=== PATIENT | female | born 1935 | race Caucasian/White ===

== ENCOUNTER 2017-03-11 10:40 | Inpatient (IN) | payer MEDICARE, BC ==
[2017-03-11] MEDS ORDERED: Nitroglycerin 0.4 MG Tab.SL SL PRN (13:06)
[2017-03-11] MEDS: Carbidopa/Levodopa 25-100 MG Tab PO SCH ×2 (13:37→19:08)
[2017-03-11] MEDS: Acetaminophen 650 MG Tab.ER PO PRN (19:08)
--- NOTE | 2017-03-11 19:08 | HP ---
ADMISSION DATE: 03/11/2017 REASON FOR ADMISSION: Swing bed postoperative recovery, right total knee arthroplasty. HISTORY OF PRESENT ILLNESS: Ileana Robbins is a 81-year-old female, [place] resident, was transferred from [facility] to [facility] swing bed for post total right total knee arthroplasty rehab. Doing well. Underwent right total knee arthroplasty at [facility] in [place], 03/08/2017. Upon review, postoperative course was unremarkable. Hemoglobin day prior to admission, 03/10/2017, was 9.2. Pain is doing well, movement in therapy related only. MEDICATIONS: 1. Baby aspirin 81 mg. 2. Carbidopa levodopa 25-100 one p.o. t.i.d. 3. Acetaminophen 650 mg 1 p.o. q.8 hours p.r.n. for pain. 4. Amlodipine 2.5 mg 1 p.o. daily, blood pressure. 5. Atorvastatin 40 mg 1 p.o. at bedtime, hyperlipidemia/heart disease. Vitamin D3 1000 units daily. 6. Vitamin B12 1000 units daily. 7. Lovenox 30 mg subcu b.i.d., DVT prevention. 8. Flonase 2 puffs to each nostril once daily, allergic rhinitis. 9. Lisinopril 20 mg 1 p.o. daily, hypertension. 10.Metoprolol 12.5 mg 1 p.o. daily, CAD. 11.P.r.n. nitroglycerin. 12.Oxycodone 5 mg p.o. q.4 hours p.r.n. for pain. 13.Senna Plus one p.o. b.i.d. constipation. ALLERGIES: Allergic to aspirin, though is on; hydrocodone with nausea; tramadol with nausea. PAST MEDICAL HISTORY: Significant for previous remote sinus surgery and single coronary artery stent in May 2016 for coronary artery disease. No other operative procedures, hospitalizations, unusual childhood diseases, major injuries, or fractures. Ongoing medical problems include CAD with stent, medical therapy; recent diagnosis a year ago of Parkinson's on treatment. 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 Two children; one daughter and one son. Son lives [place] and daughter lives in [place]. at age 55 of complications of valve surgery. Nonsmoker. No alcohol consumption. No illicit drug use. FAMILY HISTORY: Mom at 88 of a stroke, dad succumbed to motor vehicle accident at 67. Eleven siblings total, four sisters and six brothers. Lost one brother to cancer, one to heart disease, one to a brain tumor. Sisters all are well. REVIEW OF SYSTEMS: CONSTITUTIONAL: Feeling generally well. EYES: Sees well with correction. EARS: Hears well without conflict. OROPHARYNX: All dentition intact. CHEST: No cough, wheeze, or congestion. CARDIOVASCULAR: Denies chest pain, palpitations, or syncope. GI: Regular predictable stools, stool softener placed. : Good bladder control. SKIN: No new lesions, eruptions, or moles. ENDOCRINE: No excessive thirst or urination. ALLERGIES: No chronic cough, wheeze, or congestion. Some seasonal hay fevers. Orthopedic recent right total knee arthroplasty. PSYCHIATRIC: Mood stable. PHYSICAL EXAMINATION: VITAL SIGNS: Stable. 76.2 kg, height 1.6 meters, 36.8 degrees centigrade, pulse of 86, blood pressure 121/67, mean blood pressure 85, respirations 17, O2 saturation 95%. GENERAL: Elderly, cooperative, conversant. Gives a good history. Nothing really parkinsonian looking about her. HEENT: Reveal funduscopic benign. Bright TMs. Clear nasal discharge. Mouth and oropharynx are clear. Tongue midline. Good gag reflex. NECK: Benign. Thyroid small. No adenopathy. No carotid bruits. CHEST: Clear in all lung olmstead. No adventitious sounds. HEART: Regular without ectopy or murmur. Normal S1, S2 without S3, S4 murmur. Breasts exam deferred. ABDOMEN: Benign. No surgical scars. No hepatosplenomegaly AND RECTAL: Appropriate for extremities. Dressing in place. Right total knee arthroplasty. Moderate warmth and redness and swelling appropriate for postoperative four days. EXTREMITIES: Well perfused with dorsalis pedis, posterior tibial, venous insufficiency. RECTAL: Appropriately deferred. LABORATORY STUDIES: None indicated. ASSESSMENT: 1. Swing bed admission, right total knee arthroplasty, doing well. 2. Status post surgery, status post CAD with single artery stent placement. 3. Hypertension. 4. Hyperlipidemia. PLAN: Medications will be continued as appropriate. We will proceed with appropriate duration as outlined on her Lovenox therapy. PT/OT consulted, observation of general well being will do well. /[id number] JANIE/GISELA
[2017-03-11] MEDS: Enoxaparin 30 MG/0.3 ML Syringe SUBCUT SCH (21:28)
[2017-03-11] MEDS: atorvaSTATin 40 MG Tab PO SCH (21:28)
[2017-03-12] MEDS: oxyCODONE 5 MG Tab PO PRN ×4 (03:55→20:42)
[2017-03-12] MEDS: Acetaminophen 650 MG Tab.ER PO PRN (06:54)
[2017-03-12] MEDS: Carbidopa/Levodopa 25-100 MG Tab PO SCH ×3 (06:55→18:30)
[2017-03-12] MEDS: Fluticasone Propionate Nasal Spray 16 GM Bottle NASBOTH SCH (08:32)
[2017-03-12] MEDS: Aspirin 81 MG Tab.EC PO SCH (08:33)
[2017-03-12] MEDS: Enoxaparin 30 MG/0.3 ML Syringe SUBCUT SCH ×2 (08:33→20:32)
[2017-03-12] MEDS: amLODIPine 2.5 MG Tab PO SCH (08:35)
[2017-03-12] MEDS: Lisinopril 20 MG Tab PO SCH (08:35)
[2017-03-12] MEDS: Metoprolol Succinate 25 MG Tab.ER PO SCH (08:36)
[2017-03-12] MEDS ORDERED: Cholecalciferol (Vitamin D3) 1,000 Unit Tab PO SCH (09:00)
[2017-03-12] MEDS ORDERED: Cyanocobalamin (Vitamin B12) 1,000 MCG Tab PO SCH (09:00)
--- NOTE | 2017-03-12 12:14 | PN ---
DATE SEEN: 03/12/2017 SUBJECTIVE: Ileana Robbins is a 81-year-old female, seen today for review. Four days postop right total knee arthroplasty. Dr. Stephen Barnard. Doing well. Dressing to be in place for five days by report. Doing well. A little bit of pain treated with analgesics and comfortable. Otherwise doing well. PT happy with success. OBJECTIVE: Wound was dressed, but looking without difficulty. Moderate swelling. Postoperative care, right total knee arthroplasty. PLAN: All looks well. Continue PT therapy and care. Evaluation 1st of the week. /[id number] JANIE/GISELA
[2017-03-12] MEDS: atorvaSTATin 40 MG Tab PO SCH (20:31)
[2017-03-13] MEDS: oxyCODONE 5 MG Tab PO PRN ×3 (05:05→20:12)
[2017-03-13] MEDS: Carbidopa/Levodopa 25-100 MG Tab PO SCH ×3 (06:31→18:10)
[2017-03-13] MEDS: Fluticasone Propionate Nasal Spray 16 GM Bottle NASBOTH SCH (09:27)
[2017-03-13] MEDS: Aspirin 81 MG Tab.EC PO SCH (09:28)
[2017-03-13] MEDS: Enoxaparin 30 MG/0.3 ML Syringe SUBCUT SCH ×2 (09:30→20:12)
[2017-03-13] MEDS: amLODIPine 2.5 MG Tab PO SCH (09:30)
[2017-03-13] MEDS: Lisinopril 20 MG Tab PO SCH (09:31)
[2017-03-13] MEDS: Metoprolol Succinate 25 MG Tab.ER PO SCH (09:31)
[2017-03-13] MEDS: Acetaminophen 650 MG Tab.ER PO PRN ×2 (09:43→22:46)
[2017-03-13] MEDS: atorvaSTATin 40 MG Tab PO SCH (20:12)
[2017-03-14] MEDS: oxyCODONE 5 MG Tab PO PRN ×3 (04:53→21:50)
[2017-03-14] MEDS: Carbidopa/Levodopa 25-100 MG Tab PO SCH ×3 (06:31→18:54)
[2017-03-14] MEDS: Fluticasone Propionate Nasal Spray 16 GM Bottle NASBOTH SCH (08:01)
[2017-03-14] MEDS: Enoxaparin 30 MG/0.3 ML Syringe SUBCUT SCH ×2 (08:02→20:03)
[2017-03-14] MEDS: amLODIPine 2.5 MG Tab PO SCH (08:02)
[2017-03-14] MEDS: Aspirin 81 MG Tab.EC PO SCH (08:02)
[2017-03-14] MEDS: Lisinopril 20 MG Tab PO SCH (08:03)
[2017-03-14] MEDS: Metoprolol Succinate 25 MG Tab.ER PO SCH (08:03)
[2017-03-14] MEDS: Acetaminophen 650 MG Tab.ER PO PRN ×2 (08:04→17:56)
--- NOTE | 2017-03-14 08:34 | PCM.PN ---
- General Info Date of Service: 03/14/17 Admission Dx/Problem (Free Text): Patient is without concerns. She states her pains under control and being treated appropriately for her right knee. She denies chest pain, shortness of breath, fevers. Functional Status: Reports: pain controlled - Patient Data Vitals - most recent: Last Vital Signs Temp 98.7 F 03/13/17 07:40 Pulse 85 03/14/17 08:03 Resp 20 03/13/17 07:40 BP 114/64 03/14/17 08:03 Pulse Ox 93 L 03/13/17 07:40 Weight - most recent: 165 lb I&O - last 24 hours: Intake & Output 03/13/17 03/14/17 03/14/17 22:59 06:59 14:59 Intake Total 200 Balance 200 Med Orders - Current: Current Medications Acetaminophen (Tylenol Arthritis Pain) 650 mg PO Q8H PRN PRN Reason: Pain Last Admin: 03/14/17 08:04 Dose: 650 mg Amlodipine Besylate (Norvasc) 2.5 mg PO DAILY [facility] Last Admin: 03/14/17 08:02 Dose: 2.5 mg Aspirin (Halfprin) 81 mg PO DAILY [facility] Last Admin: 03/14/17 08:02 Dose: 81 mg Atorvastatin Calcium (Lipitor) 40 mg PO BEDTIME [facility] Last Admin: 03/13/17 20:12 Dose: 40 mg Carbidopa/Levodopa (Sinemet 25-100 Mg) 1 tab PO TID@0730,13,19 [facility] Last Admin: 03/14/17 06:31 Dose: 1 tab Enoxaparin Sodium (Lovenox) 30 mg SUBCUT BID [facility] Last Admin: 03/14/17 08:02 Dose: 30 mg Fluticasone Propionate (Flonase) 0 gm NASBOTH DAILY [facility] Last Admin: 03/14/17 08:01 Dose: 1 spray Lisinopril (Prinivil) 20 mg PO DAILY [facility] Last Admin: 03/14/17 08:03 Dose: 20 mg Metoprolol Succinate (Toprol Xl) 12.5 mg PO DAILY [facility] Last Admin: 03/14/17 08:03 Dose: 12.5 mg Nitroglycerin (Nitrostat) 0.4 mg SL Q5M PRN PRN Reason: Chest Pain Oxycodone HCl (Oxycodone) 5 mg PO Q4H PRN PRN Reason: Pain Last Admin: 03/14/17 04:53 Dose: 5 mg Senna/Docusate Sodium (Senna Plus) 1 tab PO BID [facility] Last Admin: 03/14/17 08:03 Dose: 1 tab Discontinued Medications Cholecalciferol (Vitamin D3) 1,000 units PO DAILY [facility] Last Admin: 03/12/17 08:36 Dose: 1,000 units Cyanocobalamin (Vitamin B12) 1,000 mcg PO DAILY [facility] Last Admin: 03/12/17 08:36 Dose: 1,000 mcg - Exam General: alert, oriented Lungs: Clear to auscultation, Normal respiratory effort Cardiovascular: Regular Rate, Regular Rhythm, No Murmurs Extremities: other (Mild swelling right leg) Skin: other (I looked at the top of the incision and it is healing nicely without any signs of infection) - Problem List & Annotations (1) S/P total knee arthroplasty SNOMED Code(s): 4876644921423, 916282317, 9100705775964 Code(s): Z96.659 - PRESENCE OF UNSPECIFIED ARTIFICIAL KNEE JOINT Status: Acute Current Visit: Yes - Problem List Review Problem List Initiated/Reviewed/Updated: Yes - Plan Plan:: 1. Continue current care of PT/OT and DVT prophylaxis.
[2017-03-14] MEDS: atorvaSTATin 40 MG Tab PO SCH (20:03)
[2017-03-15] MEDS: oxyCODONE 5 MG Tab PO PRN ×2 (03:37→07:44)
[2017-03-15] MEDS: Carbidopa/Levodopa 25-100 MG Tab PO SCH ×3 (07:44→18:46)
[2017-03-15] MEDS: Enoxaparin 30 MG/0.3 ML Syringe SUBCUT SCH ×2 (08:10→21:05)
[2017-03-15] MEDS: Fluticasone Propionate Nasal Spray 16 GM Bottle NASBOTH SCH (08:10)
[2017-03-15] MEDS: Metoprolol Succinate 25 MG Tab.ER PO SCH (08:12)
[2017-03-15] MEDS: Aspirin 81 MG Tab.EC PO SCH (08:12)
[2017-03-15] MEDS: amLODIPine 2.5 MG Tab PO SCH (08:12)
[2017-03-15] MEDS: Lisinopril 20 MG Tab PO SCH (08:13)
--- NOTE | 2017-03-15 08:33 | PCM.PN ---
- General Info Date of Service: 03/15/17 Admission Dx/Problem (Free Text): I was asked to see the patient by the nurse because of continue pain and right leg swelling. She states is not getting a lot better with the pain. Nurse states the swelling is down some. There is concerns about a blood clot. No fevers or chills. Wound is reported to be normal looking. - Patient Data Vitals - most recent: Last Vital Signs Temp 97.7 F 03/15/17 07:10 Pulse 97 03/15/17 08:12 Resp 20 03/15/17 07:10 BP 110/59 L 03/15/17 08:13 Pulse Ox 92 L 03/15/17 07:10 Weight - most recent: 165 lb Med Orders - Current: Current Medications Acetaminophen (Tylenol Arthritis Pain) 650 mg PO Q8H PRN PRN Reason: Pain Last Admin: 03/14/17 17:56 Dose: 650 mg Amlodipine Besylate (Norvasc) 2.5 mg PO DAILY [facility] Last Admin: 03/15/17 08:12 Dose: 2.5 mg Aspirin (Halfprin) 81 mg PO DAILY [facility] Last Admin: 03/15/17 08:12 Dose: 81 mg Atorvastatin Calcium (Lipitor) 40 mg PO BEDTIME [facility] Last Admin: 03/14/17 20:03 Dose: 40 mg Carbidopa/Levodopa (Sinemet 25-100 Mg) 1 tab PO TID@0730,,19 [facility] Last Admin: 03/15/17 07:44 Dose: 1 tab Enoxaparin Sodium (Lovenox) 30 mg SUBCUT BID [facility] Last Admin: 03/15/17 08:10 Dose: 30 mg Fluticasone Propionate (Flonase) 0 gm NASBOTH DAILY [facility] Last Admin: 03/15/17 08:10 Dose: 1 spray Lisinopril (Prinivil) 20 mg PO DAILY [facility] Last Admin: 03/15/17 08:13 Dose: 20 mg Metoprolol Succinate (Toprol Xl) 12.5 mg PO DAILY [facility] Last Admin: 03/15/17 08:12 Dose: 12.5 mg Nitroglycerin (Nitrostat) 0.4 mg SL Q5M PRN PRN Reason: Chest Pain Oxycodone HCl (Oxycodone) 5 mg PO Q4H PRN PRN Reason: Pain Last Admin: 03/15/17 07:44 Dose: 5 mg Senna/Docusate Sodium (Senna Plus) 1 tab PO BID [facility] Last Admin: 03/15/17 08:13 Dose: 1 tab Discontinued Medications Cholecalciferol (Vitamin D3) 1,000 units PO DAILY [facility] Last Admin: 03/12/17 08:36 Dose: 1,000 units Cyanocobalamin (Vitamin B12) 1,000 mcg PO DAILY [facility] Last Admin: 03/12/17 08:36 Dose: 1,000 mcg - Exam General: alert, oriented, cooperative Extremities: edema (Right leg) Skin: other (No erythema around the wound) - Problem List & Annotations (1) S/P total knee arthroplasty SNOMED Code(s): 3464104626367, 177345743, 3832035456108 Code(s): Z96.659 - PRESENCE OF UNSPECIFIED ARTIFICIAL KNEE JOINT Status: Acute Current Visit: Yes (2) Swelling of right lower extremity SNOMED Code(s): 061599263 Code(s): M79.89 - OTHER SPECIFIED SOFT TISSUE DISORDERS Status: Acute Current Visit: Yes - Problem List Review Problem List Initiated/Reviewed/Updated: Yes - Plan Plan:: 1. Ultrasound right leg to rule out clot.
[2017-03-15] MEDS: Acetaminophen 650 MG Tab.ER PO PRN ×2 (11:18→21:09)
[2017-03-15] MEDS: atorvaSTATin 40 MG Tab PO SCH (21:04)
[2017-03-16] MEDS: Carbidopa/Levodopa 25-100 MG Tab PO SCH ×3 (08:18→19:35)
[2017-03-16] MEDS: Fluticasone Propionate Nasal Spray 16 GM Bottle NASBOTH SCH (08:18)
[2017-03-16] MEDS: Aspirin 81 MG Tab.EC PO SCH (08:18)
[2017-03-16] MEDS: amLODIPine 2.5 MG Tab PO SCH (08:19)
[2017-03-16] MEDS: Enoxaparin 30 MG/0.3 ML Syringe SUBCUT SCH ×2 (08:19→20:37)
[2017-03-16] MEDS: Metoprolol Succinate 25 MG Tab.ER PO SCH (08:20)
[2017-03-16] MEDS: Lisinopril 20 MG Tab PO SCH (08:20)
[2017-03-16] MEDS: Acetaminophen 650 MG Tab.ER PO PRN ×2 (08:21→19:35)
--- NOTE | 2017-03-16 09:57 | US ---
INDICATION: Status post surgery, right leg swelling. ULTRASOUND VENOUS DUPLEX RIGHT LOWER EXTREMITY: FINDINGS: As visualized, no DVT is shown on the study. There is prominent edema that is identified within the right calf region. This makes it difficult to identify the posterior tibial veins and anterior tibial veins. As visualized , the anterior and posterior tibial veins do look normal, however. Above the level of the knee, the common femoral vein, superficial femoral vein, deep femoral vein, and popliteal vein are normal. The greater saphenous vein is normal. IMPRESSION: No DVT is shown. MTDD
[2017-03-16] MEDS: atorvaSTATin 40 MG Tab PO SCH (20:37)
[2017-03-17] MEDS: Acetaminophen 650 MG Tab.ER PO PRN ×2 (05:52→20:54)
[2017-03-17] MEDS: Carbidopa/Levodopa 25-100 MG Tab PO SCH ×3 (07:37→19:29)
[2017-03-17] MEDS: Enoxaparin 30 MG/0.3 ML Syringe SUBCUT SCH ×2 (09:00→20:47)
[2017-03-17] MEDS: Fluticasone Propionate Nasal Spray 16 GM Bottle NASBOTH SCH (09:23)
[2017-03-17] MEDS: Lisinopril 20 MG Tab PO SCH (09:24)
[2017-03-17] MEDS: Aspirin 81 MG Tab.EC PO SCH (09:25)
[2017-03-17] MEDS: Metoprolol Succinate 25 MG Tab.ER PO SCH (09:25)
[2017-03-17] MEDS: amLODIPine 2.5 MG Tab PO SCH (09:25)
[2017-03-17] MEDS: atorvaSTATin 40 MG Tab PO SCH (20:46)
[2017-03-18] MEDS: Acetaminophen 650 MG Tab.ER PO PRN ×3 (03:20→21:36)
[2017-03-18] MEDS: Carbidopa/Levodopa 25-100 MG Tab PO SCH ×3 (07:41→18:32)
[2017-03-18] MEDS: Fluticasone Propionate Nasal Spray 16 GM Bottle NASBOTH SCH (08:54)
[2017-03-18] MEDS: Enoxaparin 30 MG/0.3 ML Syringe SUBCUT SCH ×2 (08:55→20:05)
[2017-03-18] MEDS: Aspirin 81 MG Tab.EC PO SCH (08:55)
[2017-03-18] MEDS: Lisinopril 20 MG Tab PO SCH (08:56)
[2017-03-18] MEDS: amLODIPine 2.5 MG Tab PO SCH (08:56)
[2017-03-18] MEDS: Metoprolol Succinate 25 MG Tab.ER PO SCH (08:57)
[2017-03-18] MEDS: atorvaSTATin 40 MG Tab PO SCH (20:05)
[2017-03-19] MEDS: Carbidopa/Levodopa 25-100 MG Tab PO SCH ×2 (07:40→12:37)
[2017-03-19] MEDS: Aspirin 81 MG Tab.EC PO SCH (09:45)
[2017-03-19] MEDS: Fluticasone Propionate Nasal Spray 16 GM Bottle NASBOTH SCH (09:45)
[2017-03-19] MEDS: amLODIPine 2.5 MG Tab PO SCH (09:45)
[2017-03-19] MEDS: Enoxaparin 30 MG/0.3 ML Syringe SUBCUT SCH (09:46)
[2017-03-19] MEDS: Lisinopril 20 MG Tab PO SCH (09:46)
[2017-03-19] MEDS: Metoprolol Succinate 25 MG Tab.ER PO SCH (09:47)
[2017-03-19 10:00] VITALS: BP 138/82
[2017-03-19] MEDS: Acetaminophen 650 MG Tab.ER PO PRN (10:26)
--- NOTE | 2017-03-19 11:09 | PCM.DCSUM1 ---
Discharge Summary - Hospital Course Free Text/Narrative:: Pleasant 81y female admitted 03/11/2017 for swing bed PT/OT/Lovenox therapy, from [facility] after uneventful RIGHT TKA (performed 03/08/2017). She has done well during her stay and has participate with PT/OT up to full weight bearing and appropriate range of motion. improved endurance. two days prior to discharge noted some increase swelling in the leg, and US performed ruling OUT dvt. She remains on prophylactic post-op Lovenox 30mg bid and will finish 2 additional days upon discharge for which she will require Home Health for monitoring and assessment. will continue with PT/OT for continued strengthing, ambulation, knee ROM, ADLs that are at this time still limited due to recent procedure. Her incision has been clean and healthy and she is due for follow up with ortho next week and next month in [place], [place]. these appts are already set up for her. She tells me she feels ready and comfortable with going home with home health. She will follow up with her PCP in 7-10 days for post hospitalization reviewed and medication reconciliation. She is encouraged to continue with deep breaths and cough several times a day the first week post discharge to prevent atalectasis. no driving. wound cares and pain management discussed. she states tylenol is all she has needed. Total Time: 60 min with >50% spent face to face with pt conducting exam, discussing past, current and follow up care plan and medications as above. All questions reviewed and she agrees to above. - Discharge Data Discharge Date: 03/19/17 Discharge Disposition: Home, W Home Health Agency 06 Condition: Good - Discharge Diagnosis/Problem(s) (1) S/P total knee arthroplasty SNOMED Code(s): 1578321467640, 981989217, 2447142136288 ICD Code: Z96.659 - PRESENCE OF UNSPECIFIED ARTIFICIAL KNEE JOINT Status: Acute Onset Date: ~03/08/17 Qualifiers: Laterality: right Qualified Code(s): Z96.651 - Presence of right artificial knee joint - Patient Summary/Data Consults: Consultations 03/11/17 13:01 Consult to Occupational Therapy [OT Evaluation and Treatment] [CONS] Routine Please Evaluate and Treat. OT Reason for Consult: Strengthening This query below is only for informational purposes and is not editable. Admission Diagnosis/Problem: Knee pain PT Evaluation and Treatment [CONS] Routine Please Evaluate and Treat. PT Reason for Consult: Strengthening This query below is only for informational purposes and is not editable. Admission Diagnosis/Problem: Knee pain - Patient Instructions Diet: Heart Healthy Diet Activity: Cough & Deep Breathe, Full Weight Bearing Driving: Do Not Drive Showering/Bathing: May Shower Wound/Incision Care: Keep Operative Site/Wound Site Clean and Dry Notify Provider of: Fever, Increased Pain, Swelling and Redness, Drainage, Nausea and/or Vomiting Other/Special Instructions: Confirm Orthopedic Follow up appts/times/locations - Discharge Plan Home Medications: Home Meds Acetaminophen [Tylenol Arthritis] 650 mg PO Q8H PRN 03/11/17 [History] Aspirin [Halfprin] 81 mg PO DAILY 03/11/17 [History] Carbidopa/Levodopa [Sinemet 25-100 mg Tablet] 1 tab PO TID@0730,13,19 03/11/17 [ History] Cholecalciferol (Vitamin D3) [Vitamin D3] 1,000 unit PO DAILY 03/11/17 [History] Cyanocobalamin (Vitamin B-12) [B-12] 1,000 mcg PO DAILY 03/11/17 [History] Docusate Sodium/Sennosides [Senna Plus] 1 tab PO BID 03/11/17 [History] Fluticasone Propionate [Flonase] 1 spray NASBOTH DAILY 03/11/17 [History] Gluc Velazquez Dipo Ch/Denny Velazquez/C/Ruddy [Glucosamine Chondroitin Caplet] 1 tab PO BID [History] Lisinopril 20 mg PO DAILY 03/11/17 [History] Lutein 20 mg PO DAILY 03/11/17 [History] Metoprolol Succinate 12.5 mg PO DAILY 03/11/17 [History] Nitroglycerin 0.4 mg SL Q5M PRN 03/11/17 [History] amLODIPine [Norvasc] 2.5 mg PO DAILY 03/11/17 [History] atorvaSTATin [Lipitor] 40 mg PO BEDTIME 03/11/17 [History] Enoxaparin Sodium [Lovenox] 30 mg SQ BID #8 injection 03/19/17 [Rx] Patient Handouts: Total Knee Replacement, Care After, Fall Prevention in Hospitals, Adult, How and Where to Give Subcutaneous Injections Using a Prefilled Syringe, How and Where to Give Subcutaneous Enoxaparin Injections, Venous Thromboembolism Prevention - Discharge Summary/Plan Comment DC Time >30 min.: Yes - General Info Date of Service: 03/19/17 Functional Status: Reports: pain controlled, tolerating diet, ambulating, urinating - Review of Systems General: Reports: No Symptoms HEENT: Reports: no symptoms Pulmonary: Reports: no symptoms Cardiovascular: Reports: No Symptoms Gastrointestinal: Reports: No symptoms Genitourinary: Reports: no symptoms Musculoskeletal: Reports: leg pain (right post op as expected.) Skin: Reports: bruising (right leg as expected) Neurological: Denies: Numbness, Tingling Psychiatric: Reports: no symptoms - Patient Data Vitals - Most Recent: Last Vital Signs Temp 98.2 F 03/19/17 09:00 Pulse 72 03/19/17 09:47 Resp 18 03/19/17 09:00 BP 136/78 03/19/17 09:47 Pulse Ox 97 03/18/17 13:00 Weight - Most Recent: 74.843 kg Med Orders - Current: Current Medications Acetaminophen (Tylenol Arthritis Pain) 650 mg PO Q8H PRN PRN Reason: Pain Last Admin: 03/19/17 10:26 Dose: 650 mg Amlodipine Besylate (Norvasc) 2.5 mg PO DAILY [facility] Last Admin: 03/19/17 09:45 Dose: 2.5 mg Aspirin (Halfprin) 81 mg PO DAILY [facility] Last Admin: 03/19/17 09:45 Dose: 81 mg Atorvastatin Calcium (Lipitor) 40 mg PO BEDTIME [facility] Last Admin: 03/18/17 20:05 Dose: 40 mg Carbidopa/Levodopa (Sinemet 25-100 Mg) 1 tab PO TID@0730,13,19 [facility] Last Admin: 03/19/17 07:40 Dose: 1 tab Enoxaparin Sodium (Lovenox) 30 mg SUBCUT BID [facility] Stop: 03/21/17 09:01 Last Admin: 03/19/17 09:46 Dose: 30 mg Fluticasone Propionate (Flonase) 0 gm NASBOTH DAILY [facility] Last Admin: 03/19/17 09:45 Dose: 1 spray Lisinopril (Prinivil) 20 mg PO DAILY [facility] Last Admin: 03/19/17 09:46 Dose: 20 mg Metoprolol Succinate (Toprol Xl) 12.5 mg PO DAILY [facility] Last Admin: 03/19/17 09:47 Dose: 12.5 mg Nitroglycerin (Nitrostat) 0.4 mg SL Q5M PRN PRN Reason: Chest Pain Oxycodone HCl (Oxycodone) 5 mg PO Q4H PRN PRN Reason: Pain Last Admin: 03/15/17 07:44 Dose: 5 mg Senna/Docusate Sodium (Senna Plus) 1 tab PO BID [facility] Last Admin: 03/19/17 09:48 Dose: 1 tab Discontinued Medications Cholecalciferol (Vitamin D3) 1,000 units PO DAILY [facility] Last Admin: 03/12/17 08:36 Dose: 1,000 units Cyanocobalamin (Vitamin B12) 1,000 mcg PO DAILY [facility] Last Admin: 03/12/17 08:36 Dose: 1,000 mcg - Exam General: Reports: alert, oriented, no acute distress HEENT: Reports: Pupils equal, Mucous membr. moist/pink Neck: Reports: supple, no thyromegaly Lungs: Reports: Clear to auscultation, Normal respiratory effort Cardiovascular: Reports: Regular Rate, Regular Rhythm, No Murmurs Abdomen: Reports: bowel sounds present, soft, no tenderness, no distension Back Exam: Reports: Normal Inspection Extremities: Reports: normal pulses, calf tenderness (improving-right leg), edema (right leg improving with ice) Skin: Reports: warm, ecchymosis (right leg medial ankle, calf. as expected. ) Wound/Incisions: Reports: healing well, dressing dry and intact, no drainage Neurological: Reports: no new focal deficit Psy/Mental Status: Reports: normal affect, normal mood *Q Meaningful Use (DIS) - VTE *Q VTE Criteria *Q: - Stroke *Q Stroke Criteria *Q: - AMI *Q AMI Criteria *Q:
== END 2017-03-19 12:50 | disposition home health service (06) | DRG 561 ==
LOC: FB.MS 11:44
PROVIDERS: ADMIT Family Medicine; ATTEND Family Medicine
DX: Z47.1 Aftercare following joint replacement surgery (principal); Z98.890 Other specified postprocedural states; Z96.651 Presence of right artificial knee joint; I25.10 Atherosclerotic heart disease of native coronary artery without angina pectoris; G20 Parkinson's disease; I10 Essential (primary) hypertension; E78.5 Hyperlipidemia, unspecified; Z95.5 Presence of coronary angioplasty implant and graft; Z79.82 Long term (current) use of aspirin; Z88.5 Allergy status to narcotic agent; Z88.8 Allergy status to other drugs, medicaments and biological substances; M79.89 Other specified soft tissue disorders; M79.604 Pain in right leg
CPT/HCPCS: 93971-RT; 97110-GP; 97116-GP; 97161-GP; 97165-GO; 97530-GO; 97530-GO-KX; 97535-GO; A9270-GY; J1650

== ENCOUNTER 2022-05-18 09:21 | Day surgery (SDC) | payer MEDICARE, BC ==
[2022-05-18] MEDS ORDERED: Ondansetron 4 MG/2 ML SDV IVPUSH ONE (09:22)
[2022-05-18] MEDS ORDERED: fentaNYL 100 MCG/2 ML SDV IV ONE (09:22)
[2022-05-18] MEDS ORDERED: Midazolam 1 MG/ML 2 ML SDV IV ONE (09:22)
[2022-05-18] MEDS ORDERED: Lactated Ringers 1,000 ML IV PRN (10:30)
[2022-05-18] MEDS ORDERED: Sodium Chloride 0.9% 10 ML Syringe FLUSH PRN (10:30)
[2022-05-18] MEDS ORDERED: acetaZOLAMIDE 500 MG Cap.ER PO ONE (11:20)
[2022-05-18 12:09] VITALS: BP 106/60; PULSE 66
== END 2022-05-18 12:00 | disposition home or self-care (01) ==
LOC: FB.SDS 09:21
PROVIDERS: ATTEND Ophthalmology
DX: H26.9 Unspecified cataract (principal); J30.9 Allergic rhinitis, unspecified; I10 Essential (primary) hypertension; E78.5 Hyperlipidemia, unspecified; I25.10 Atherosclerotic heart disease of native coronary artery without angina pectoris; E78.00 Pure hypercholesterolemia, unspecified; Z95.5 Presence of coronary angioplasty implant and graft; Z98.890 Other specified postprocedural states; Z79.899 Other long term (current) drug therapy; Z88.5 Allergy status to narcotic agent; Z88.6 Allergy status to analgesic agent
CPT/HCPCS: 00142; 66984; A9270; J2250; J2405; J3010

== ENCOUNTER 2022-06-08 08:01 | Day surgery (SDC) | payer MEDICARE, BC ==
[~2022-06-08 08:01] MED LIST: Lactated Ringers 1,000 ML IV PRN; Sodium Chloride 0.9% 10 ML Syringe FLUSH PRN
[2022-06-08] MEDS ORDERED: fentaNYL 100 MCG/2 ML SDV IV ONE (08:02)
[2022-06-08] MEDS ORDERED: Midazolam 1 MG/ML 2 ML SDV IV ONE (08:02)
[2022-06-08] MEDS ORDERED: Ondansetron 4 MG/2 ML SDV IVPUSH ONE (08:02)
[2022-06-08 09:48] VITALS: PULSE 60
[2022-06-08] MEDS ORDERED: acetaZOLAMIDE 500 MG Cap.ER PO ONE (10:00)
== END 2022-06-08 10:30 | disposition home or self-care (01) ==
LOC: FB.SDS 08:01
PROVIDERS: ATTEND Ophthalmology
DX: H25.13 Age-related nuclear cataract, bilateral (principal); H35.3132 Nonexudative age-related macular degeneration, bilateral, intermediate dry stage; H35.372 Puckering of macula, left eye; H43.813 Vitreous degeneration, bilateral; H40.023 Open angle with borderline findings, high risk, bilateral; H04.123 Dry eye syndrome of bilateral lacrimal glands; H52.13 Myopia, bilateral; I10 Essential (primary) hypertension
CPT/HCPCS: 00142; 66984; A9270; J2250; J2405; J3010; J3490; V2632